=== PATIENT | male | born 1965 | race Caucasian/White ===

== ENCOUNTER → 2019-02-21 | Emergency (ER) | payer OTHER ==
[2019-02-21] MEDS: HYDROCODONE/APAP (5/325) TAB PO (12:45)
[2019-02-21] MEDS: ONDANSETRON (ODT) 4 MG TAB ODT (12:45)
== END | disposition home or self-care (01) ==
LOC: FTE 11:13
DX: M54.2 Cervicalgia (principal)
CPT/HCPCS: 72040; 73090; 73562; 99284-25